=== PATIENT | female | born 1945 | race Caucasian/White ===

== ENCOUNTER 2019-04-01 18:52 | Emergency (ER) | payer MEDICARE, OTHER ==
[2019-04-01] MEDS ORDERED: Acetaminophen/HYDROcodone 325-5 MG Tab PO ONE (18:53)
[2019-04-01] MEDS ORDERED: Ondansetron 4 MG Tab.DIS PO ONE (18:53)
[2019-04-01] MEDS ORDERED: Acetaminophen/oxyCODONE 325-5 MG Tab PO ONE (18:53)
[2019-04-01] MEDS ORDERED: cefTRIAXone 1 GM Vial IM ONE (19:23)
--- NOTE | 2019-04-01 19:25 | EDM.PDOC ---
ED HPI GENERAL MEDICAL PROBLEM - General Chief Complaint: Genitourinary Problem Stated Complaint: lower back pain Time Seen by Provider: 04/01/19 19:07 Source of Information: Reports: Patient History Limitations: Reports: No Limitations - History of Present Illness INITIAL COMMENTS - FREE TEXT/NARRATIVE: This patient is a 73 year old female that presents to the ER. Patient reports that at 4:30pm she started with left lower back pain and urge to urinate with dysuria. Patient denies castelan, dizziness, n, v, d, f, cp, soa, abd pain, pelvic pain. Onset: Today Onset Date: 04/01/19 Onset Time: 16:30 Location: Reports: Back Quality: Reports: Burning Severity: Moderate Improves with: Reports: None Worsens with: Reports: None Associated Symptoms: Denies: Confusion, Chest Pain, Cough, cough w sputum, Diaphoresis, Fever/Chills, Headaches, Loss of Appetite, Malaise, Nausea/Vomiting , Rash, Seizure, Shortness of Breath, Syncope, Weakness Treatments [employer]: Reports: NSAIDS Lower Back Pain Score (Numeric/FACES): 6 - Related Data Allergies Allergy/AdvReac Type Severity Reaction Status Date / Time ciprofloxacin [From Cipro] Allergy Diarrhea Verified 04/01/19 18:55 ciprofloxacin HCl Allergy Diarrhea Verified 04/01/19 18:55 [From Cipro] lisinopril Allergy Cough Verified 04/01/19 18:55 Home Meds: Home Meds Calcium Carbonate [Calcium] 500 mg PO DAILY 04/01/19 [History] Flaxseed Oil 1,000 mg PO DAILY 04/01/19 [History] Glucosamine [Glucosamine Sulfate] 500 mg PO DAILY 04/01/19 [History] Losartan/Hydrochlorothiazide [Hyzaar 50-12.5 Tablet] 1 tab PO DAILY 04/01/19 [ History] Lutein/Min/Vit C/Vit E Acetate [Ocuvite Lutein] 1 cap PO DAILY 04/01/19 [History ] Rivaroxaban [Xarelto] 20 mg PO DAILY 04/01/19 [History] Ticagrelor [Brilinta] 60 mg PO BID 04/01/19 [History] Past Medical History HEENT History: Reports: Cataract Cardiovascular History: Reports: Aneurysm, Blood Clots/VTE/DVT, Hypertension Respiratory History: Reports: Sleep Apnea Gastrointestinal History: Reports: GERD Genitourinary History: Reports: Pyelonephritis, Renal Calculus Neurological History: Reports: CVA Endocrine/Metabolic History: Reports: Obesity/BMI 30+ Oncologic (Cancer) History: Reports: Other (See Below) Other Oncologic History: "cancerous skin spots removed from face" Dermatologic History: Reports: Other (See Below) Other Dermatologic History: spots of skin cancer removed on face - Past Surgical History HEENT Surgical History: Reports: Cataract Surgery, Oral Surgery Cardiovascular Surgical History: Reports: Aneurysm, Other (See Below) Other Cardiovascular Surgeries/Procedures: coils and clips placed in December 2018 Respiratory Surgical History: Reports: None GI Surgical History: Reports: None Female Surgical History: Reports: None Endocrine Surgical History: Reports: None Neurological Surgical History: Reports: None Oncologic Surgical History: Reports: None Dermatological Surgical History: Reports: None Social & Family History - Tobacco Use Smoking Status *Q: Never Smoker Second Hand Smoke Exposure: No - Caffeine Use Caffeine Use: Reports: None - Recreational Drug Use Recreational Drug Use: No ED ROS GENERAL - Review of Systems Review Of Systems: See Below Constitutional: Reports: No Symptoms, Chills. Denies: Fever, Malaise, Weakness , Fatigue HEENT: Reports: No Symptoms Respiratory: Reports: No Symptoms. Denies: Shortness of Breath Cardiovascular: Reports: No Symptoms. Denies: Chest Pain Endocrine: Reports: No Symptoms GI/Abdominal: Denies: Abdominal Pain, Nausea, Vomiting : Reports: Dysuria, Flank Pain, Urgency Musculoskeletal: Reports: No Symptoms Skin: Reports: No Symptoms Neurological: Reports: No Symptoms Psychiatric: Reports: No Symptoms Hematologic/Lymphatic: Reports: No Symptoms Immunologic: Reports: No Symptoms ED EXAM, GI/ABD - Physical Exam Exam: See Below Exam Limited By: No Limitations General Appearance: Alert, WD/WN, No Apparent Distress Eyes: Bilateral: Normal Appearance Ears: Normal External Exam, Normal Canal, Hearing Grossly Normal, Normal TMs Nose: Normal Inspection, Normal Mucosa, No Blood Throat/Mouth: Normal Inspection, Normal Lips, Normal Teeth, Normal Gums, Normal Oropharynx, Normal Voice, No Airway Compromise Head: Atraumatic, Normocephalic Neck: Normal Inspection, Supple, Non-Tender, Full Range of Motion Respiratory/Chest: No Respiratory Distress, Lungs Clear, Normal Breath Sounds, No Accessory Muscle Use, Chest Non-Tender Cardiovascular: Normal Peripheral Pulses, Regular Rate, Rhythm, No Edema, No Gallop, No JVD, No Murmur, No Rub GI/Abdominal Exam: Normal Bowel Sounds, Soft, Non-Tender, No Organomegaly, No Distention, No Abnormal Bruit, No Mass, Pelvis Stable. No: Distended, Guarding , Rigid, Rebound, Tender Back Exam: CVA Tenderness (L). No: CVA Tenderness (R), Decreased Range of Motion, Muscle Spasm, Paraspinal Tenderness, Vertebral Tenderness Extremities: Normal Inspection, Normal Range of Motion, Non-Tender, No Pedal Edema, Normal Capillary Refill Neurological: Alert, Oriented Psychiatric: Normal Affect, Normal Mood Skin Exam: Warm, Dry, Intact, Normal Color, No Rash Lymphatic: No Adenopathy Course - Vital Signs Last Recorded V/S: Last Vital Signs Temp 100.4 F 04/01/19 20:25 Pulse 89 04/01/19 20:10 Resp 16 04/01/19 20:10 BP 138/54 L 04/01/19 20:10 Pulse Ox 96 04/01/19 20:10 - Orders/Labs/Meds Orders: Active Orders 24 hr Category Date Time Status Abdomen Pelvis wo Cont [CT] Stat Exams 04/01/19 19:43 Taken CULTURE URINE [RM] Stat Lab 04/01/19 19:19 Received Labs: Laboratory Tests 04/01/19 04/01/19 04/01/19 Range/Units 18:30 18:31 19:10 WBC 8.1 (5.0-10.0) 10^3/uL RBC 4.39 (4.00-5.50) 10^6/uL Hgb 12.4 (12.0-16.0) g/dL Hct 38.2 (37.0-47.0) % MCV 87.0 (82.0-94.0) fL MCH 28.2 (27.0-32.0) pg MCHC 32.5 L (33.0-38.0) g/dL RDW Coeff of Lacey 13.0 (11.0-15.0) % Plt Count 183 (150-400) 10^3/uL Neut % (Auto) 87.9 H (35-85) % Lymph % (Auto) 9.4 L (10-55) % Harrison % (Auto) 1.0 (0-16) % Eos % (Auto) 1.5 (0-5) % Baso % (Auto) 0.2 (0-3) % Neut # (Auto) 7.12 H (1.80-7.00) 10^3/uL Lymph # (Auto) 0.76 L (1.00-4.80) 10^3/uL Harrison # (Auto) 0.08 (0.00-0.80) 10^3/uL Eos # (Auto) 0.12 (0.00-0.45) 10^3/uL Baso # (Auto) 0.02 10^3/uL Sodium 145 (136-145) mEq/L Potassium 3.8 (3.5-5.0) mEq/L Chloride 107 H (98-106) mEq/L Carbon Dioxide 30 (21-32) mmol/L BUN 24 H (7-18) mg/dL Creatinine 1.4 H (0.6-1.0) mg/dL Est Cr Clr Drug Dosing 30.44 mL/min Estimated GFR (MDRD) 37 L (>=60) mL/min Glucose 119 H (75-99) mg/dL Calcium 9.5 (8.4-10.1) mg/dL Total Bilirubin 0.4 (0.0-1.0) mg/dL AST 11 L (15-37) U/L ALT 17 (12-78) U/L Alkaline Phosphatase 79 (46-116) U/L Total Protein 7.3 (6.4-8.2) g/dL Albumin 3.4 (3.4-5.0) g/dL Urine Color [place] (YELLOW) Urine Appearance Cloudy (CLEAR) Urine pH 7.0 (4.5-8.0) Ur Specific [place] 1.020 (1.003-1.020) Urine Protein 100 H (NEGATIVE) mg/dL Urine Glucose (UA) 100 H (NEGATIVE) mg/dL Urine Ketones Negative (NEGATIVE) mg/dL Urine Occult Blood Large H (NEGATIVE) Urine Nitrite Positive H (NEGATIVE) Urine Bilirubin Small H (NEGATIVE) Urine Urobilinogen 1.0 (0.2-1.0) EU/dL Ur Leukocyte Esterase Large H (NEGATIVE) Meds: Medications Discontinued Medications Generic Name Dose Route Start Last Admin Trade Name Freq PRN Reason Stop Dose Admin Acetaminophen 1,000 mg 04/01/19 20:15 04/01/19 20:25 Tylenol Extra Strength PO 04/01/19 20:16 1,000 mg ONETIME ONE Administration Ceftriaxone Sodium 1 gm 04/01/19 19:23 04/01/19 19:54 Rocephin IM 04/01/19 19:24 Not Given ONETIME ONE Ceftriaxone Sodium 1 gm 04/01/19 19:32 04/01/19 20:04 Rocephin IVPUSH 04/01/19 19:33 1 gm ONETIME ONE Administration Sodium Chloride 1,000 mls @ 1,000 mls/hr 04/01/19 19:32 04/01/19 20:02 Normal Saline IV 04/01/19 20:31 1,000 mls/hr .BOLUS ONE Administration Morphine Sulfate 4 mg 04/01/19 19:32 04/01/19 19:50 Morphine IVPUSH 04/01/19 19:33 4 mg ONETIME ONE Administration Ondansetron HCl 4 mg 04/01/19 19:33 04/01/19 19:48 Zofran IVPUSH 04/01/19 19:34 4 mg NOW STA Administration Ondansetron HCl 2 packet 04/01/19 21:17 Take Home: Ondansetron Odt 4 Mg, 2 Tab Pack PO 04/01/19 21:18 ONETIME ONE Oxycodone/Acetaminophen 2 packet 04/01/19 21:17 Take Home: Acetaminophen/Oxycodon, 2 Tab Pack PO 04/01/19 21:18 ONETIME ONE Tamsulosin HCl 0.4 mg 04/01/19 21:06 04/01/19 21:20 Flomax PO 04/01/19 21:07 0.4 mg ONETIME ONE Administration - Radiology Interpretation Free Text/Narrative:: CT ABD/PELVIS WITHOUT: 6mm stone left distal ureter about 1cm from the bladder. Mild left hydronephrosis. CT Results Date: 04/01/19 CT Results Time: 21:12 - Re-Assessments/Exams Free Text/Narrative Re-Assessment/Exam: 04/01/19 21:24 Patient is resting quietly. Patient reports her pain has improved. I will discharge the patient home. Educated to return if pain increases, fever, vomiting, or any other concerns. She agrees with discharge and voices back when to return. with her in room and also understands. Departure - Departure Time of Disposition: 21:13 Disposition: Home, Self-Care 01 Condition: Fair Clinical Impression: UTI, Urinary tract infectious disease, Ureteral stone with hydronephrosis - Discharge Information *PRESCRIPTION DRUG MONITORING PROGRAM REVIEWED*: No *COPY OF PRESCRIPTION DRUG MONITORING REPORT IN PATIENT EVER: No Instructions: Antibiotic Medicine, Adult, Bowe-kg-Gfez, Kidney Stones, Easy-to- Read, Urinary Tract Infection, Adult, [id number], Hydronephrosis Referrals: Kermit Pagan MD [Primary Care Provider] - Forms: ED Department Discharge Additional Instructions: Followup with your primary care provider Followup with urologist Return to the ER for fever, vomiting, unbearable pain, or any other concerns Increase fluids Zofran 4mg 1 pill every 6 hours as needed for nausea #4 take home, #8 no refill Percocet 5mg 1 pill every 4 hours as needed for pain #4 take home, #12 no refill Flomax 0.4mg 1 pill once a day #7 no refill Bactrim DS 1 pill twice a day for 7 days #14 no refill - My Orders Last 24 Hours: My Active Orders 04/01/19 19:19 CULTURE URINE [RM] Stat 04/01/19 19:43 Abdomen Pelvis wo Cont [CT] Stat - Assessment/Plan Last 24 Hours: My Active Orders 04/01/19 19:19 CULTURE URINE [RM] Stat 04/01/19 19:43 Abdomen Pelvis wo Cont [CT] Stat Plan: PLEASE SEE RN NOTE FOR PFSH.
[2019-04-01] MEDS ORDERED: Sodium Chloride 0.9% 1,000 ML IV ONE (19:32)
[2019-04-01] MEDS ORDERED: cefTRIAXone 1 GM Vial IVPUSH ONE (19:32)
[2019-04-01] MEDS ORDERED: Morphine 4 MG/ML Syringe IVPUSH ONE (19:32)
[2019-04-01] MEDS ORDERED: Ondansetron 4 MG/2 ML SDV IVPUSH STA (19:33)
[2019-04-01] MEDS ORDERED: Acetaminophen 500 MG Tab PO ONE (20:15)
[2019-04-01] MEDS ORDERED: Tamsulosin 0.4 MG Cap.ER PO ONE (21:06)
[2019-04-01] MEDS ORDERED: Take Home: Acetaminophen/oxyCODONE 325-5 MG, 2 Tab Pack PO ONE (21:17)
[2019-04-01] MEDS ORDERED: Take Home: Ondansetron 4 MG Tab.DIS, 2 Tab Pack PO ONE (21:17)
== END 2019-04-01 21:30 | disposition home or self-care (01) ==
LOC: CC.ED 18:52
DX: N13.2 Hydronephrosis with renal and ureteral calculous obstruction (principal); N39.0 Urinary tract infection, site not specified; I10 Essential (primary) hypertension; K21.9 Gastro-esophageal reflux disease without esophagitis; Z88.1 Allergy status to other antibiotic agents; Z88.8 Allergy status to other drugs, medicaments and biological substances; Z79.899 Other long term (current) drug therapy
CPT/HCPCS: 36415; 74176; 80053; 81003; 85025; 87086; 87088; 87186; 96361; 96374; 96375; 99284; A9270; J0696; J2270; J2405; J7030

== ENCOUNTER 2019-09-13 15:50 | Inpatient (IN) | payer MEDICARE, OTHER ==
[2019-09-13 16:22] LABS: CHLORIDE,CL 104 mEq/L (98-106); SODIUM,NA 143 mEq/L (136-145)
[2019-09-13] MEDS ORDERED: Sodium Chloride 0.9% 500 ML IV ONE (16:30)
[2019-09-13] MEDS ORDERED: fentaNYL 100 MCG/2 ML SDV IVPUSH ONE (16:30)
[2019-09-13] MEDS ORDERED: Acetaminophen 325 MG Tab PO PRN (17:33)
[2019-09-13] MEDS ORDERED: Ketorolac 30 MG/ML SDV IVPUSH ONE (17:38)
[2019-09-13] MEDS ORDERED: Ketorolac 30 MG/ML SDV IV PRN (17:40)
[2019-09-13] MEDS ORDERED: fentaNYL 100 MCG/2 ML SDV IVPUSH PRN (17:40)
[2019-09-13] MEDS ORDERED: Ondansetron 4 MG/2 ML SDV IV PRN (17:40)
[2019-09-13] MEDS ORDERED: Sodium Chloride 0.9% 1,000 ML IV SCH (17:45)
[2019-09-13] MEDS ORDERED: Enoxaparin 30 MG/0.3 ML Syringe SUBCUT SCH (17:45)
[2019-09-13] MEDS ORDERED: cefTRIAXone 1 GM Vial IVPUSH SCH (17:45)
--- NOTE | 2019-09-13 19:48 | PCM.DCSUM1 ---
Discharge Summary - Hospital Course Brief History: Rufina is a 73 yo female who was seen in clinic today and admitted to the hospital for pyelonephritis. Further investigation did show an obstructing pyelonephritis. 1 gram of Rocephin was given IV. IV fentanyl and toradol has been given for discomfort. Consultation with Dr. Garsia, hospitalist, [facility] did kindly accept transfer. Patient being transferred via ALS to [facility] in [place]. Diagnosis: Stroke: No - Discharge Data Discharge Date: 09/13/19 Discharge Disposition: DC/Tfer to Acute Hospital 02 Condition: Undetermined - Referral to Home Health Primary Care Physician: Kermit Pagan MD - Discharge Diagnosis/Problem(s) (1) UTI, Urinary tract infectious disease SNOMED Code(s): 61606527 ICD Code: N39.0 - URINARY TRACT INFECTION, SITE NOT SPECIFIED Status: Acute Current Visit: No (2) Ureteral stone with hydronephrosis SNOMED Code(s): 251713324 ICD Code: N13.2 - HYDRONEPHROSIS WITH RENAL AND URETERAL CALCULOUS OBSTRUCTION Status: Acute Current Visit: No - Discharge Plan Home Medications: Home Meds Calcium Carbonate [Calcium] 500 mg PO DAILY 04/01/19 [History] Flaxseed Oil 1,000 mg PO DAILY 04/01/19 [History] Losartan/Hydrochlorothiazide [Hyzaar 50-12.5 Tablet] 1 tab PO BEDTIME 04/01/19 [ History] Lutein/Min/Vit C/Vit E Acetate [Ocuvite Lutein] 1 cap PO DAILY 04/01/19 [History ] Aspirin [Halfprin] 81 mg PO DAILY 09/13/19 [History] - Discharge Summary/Plan Comment DC Time >30 min.: Yes - General Info Date of Service: 09/13/19 Admission Dx/Problem (Free Text: Pyelonephritis Functional Status: Reports: Pain Controlled - Review of Systems General: Reports: Fever, Chills HEENT: Reports: No Symptoms Pulmonary: Reports: No Symptoms Cardiovascular: Reports: No Symptoms Gastrointestinal: Reports: Abdominal Pain, Constipation. Denies: Nausea, Vomiting Genitourinary: Reports: Flank Pain. Denies: Dysuria Musculoskeletal: Reports: Other (flank pain) Skin: Reports: No Symptoms Neurological: Reports: No Symptoms Psychiatric: Reports: No Symptoms - Patient Data Vitals - Most Recent: Last Vital Signs Temp 101.9 F H 09/13/19 19:24 Pulse 103 H 09/13/19 19:24 Resp 18 09/13/19 19:24 BP 152/65 H 09/13/19 19:26 Pulse Ox 95 09/13/19 19:24 Weight - Most Recent: 230 lb Lab Results - Last 24 hrs: Laboratory Results - last 24 hr 09/13/19 09/13/19 09/13/19 Range/Units 16:02 16:02 16:02 WBC 10.7 H (5.0-10.0) 10^3/uL RBC 4.98 (4.00-5.50) 10^6/uL Hgb 14.1 (12.0-16.0) g/dL Hct 42.8 (37.0-47.0) % MCV 85.9 (82.0-94.0) fL MCH 28.3 (27.0-32.0) pg MCHC 32.9 L (33.0-38.0) g/dL RDW Coeff of Lacey 13.4 (11.0-15.0) % Plt Count 188 (150-400) 10^3/uL Neut % (Auto) 83.7 (35-85) % Lymph % (Auto) 9.5 L (10-55) % [place] % (Auto) 5.5 (0-16) % Eos % (Auto) 1.2 (0-5) % Baso % (Auto) 0.1 (0-3) % Neut # (Auto) 8.98 H (1.80-7.00) 10^3/uL Lymph # (Auto) 1.02 (1.00-4.80) 10^3/uL [place] # (Auto) 0.59 (0.00-0.80) 10^3/uL Eos # (Auto) 0.13 (0.00-0.45) 10^3/uL Baso # (Auto) 0.01 10^3/uL Sodium 143 (136-145) mEq/L Potassium 3.9 (3.5-5.0) mEq/L Chloride 104 (98-106) mEq/L Carbon Dioxide 28 (21-32) mmol/L BUN 27 H (7-18) mg/dL Creatinine 1.7 H D (0.6-1.0) mg/dL Est Cr Clr Drug Dosing TNP Estimated GFR (MDRD) 29 L (>=60) mL/min Glucose 120 H (75-99) mg/dL Lactic Acid (0.4-2.0) mmol/L Calcium 9.4 (8.4-10.1) mg/dL Total Bilirubin 0.4 (0.0-1.0) mg/dL AST 11 L (15-37) U/L ALT 18 (12-78) U/L Alkaline Phosphatase 83 (46-116) U/L C-Reactive Protein 1.0 H (0.2-0.8) mg/dL Total Protein 8.0 (6.4-8.2) g/dL Albumin 3.7 (3.4-5.0) g/dL Urine Color Yellow (YELLOW) Urine Appearance Slightly cloudy (CLEAR) Urine pH 7.5 (4.5-8.0) Ur Specific [place] 1.010 (1.003-1.020) Urine Protein Trace H (NEGATIVE) mg/dL Urine Glucose (UA) Negative (NEGATIVE) mg/dL Urine Ketones Negative (NEGATIVE) mg/dL Urine Occult Blood Moderate H (NEGATIVE) Urine Nitrite Positive H (NEGATIVE) Urine Bilirubin Negative (NEGATIVE) Urine Urobilinogen 0.2 (0.2-1.0) EU/dL Ur Leukocyte Esterase Large H (NEGATIVE) Urine RBC 40-50 H (0-5) /HPF Urine WBC >100 H (0-5) /HPF Urine WBC Clumps Few H (NOT SEEN) /HPF Ur Squamous Epith Cells Few H (NOT SEEN) /HPF Urine Bacteria Moderate H (NOT SEEN) /HPF Urinalysis Comment 09/13/19 Range/Units 17:15 WBC (5.0-10.0) 10^3/uL RBC (4.00-5.50) 10^6/uL Hgb (12.0-16.0) g/dL Hct (37.0-47.0) % MCV (82.0-94.0) fL MCH (27.0-32.0) pg MCHC (33.0-38.0) g/dL RDW Coeff of Lacey (11.0-15.0) % Plt Count (150-400) 10^3/uL Neut % (Auto) (35-85) % Lymph % (Auto) (10-55) % Greenwood % (Auto) (0-16) % Eos % (Auto) (0-5) % Baso % (Auto) (0-3) % Neut # (Auto) (1.80-7.00) 10^3/uL Lymph # (Auto) (1.00-4.80) 10^3/uL Green[place] # (Auto) (0.00-0.80) 10^3/uL Eos # (Auto) (0.00-0.45) 10^3/uL Baso # (Auto) 10^3/uL Sodium (136-145) mEq/L Potassium (3.5-5.0) mEq/L Chloride (98-106) mEq/L Carbon Dioxide (21-32) mmol/L BUN (7-18) mg/dL Creatinine (0.6-1.0) mg/dL Est Cr Clr Drug Dosing Estimated GFR (MDRD) (>=60) mL/min Glucose (75-99) mg/dL Lactic Acid 1.7 (0.4-2.0) mmol/L Calcium (8.4-10.1) mg/dL Total Bilirubin (0.0-1.0) mg/dL AST (15-37) U/L ALT (12-78) U/L Alkaline Phosphatase (46-116) U/L C-Reactive Protein (0.2-0.8) mg/dL Total Protein (6.4-8.2) g/dL Albumin (3.4-5.0) g/dL Urine Color (YELLOW) Urine Appearance (CLEAR) Urine pH (4.5-8.0) Ur Specific [place] (1.003-1.020) Urine Protein (NEGATIVE) mg/dL Urine Glucose (UA) (NEGATIVE) mg/dL Urine Ketones (NEGATIVE) mg/dL Urine Occult Blood (NEGATIVE) Urine Nitrite (NEGATIVE) Urine Bilirubin (NEGATIVE) Urine Urobilinogen (0.2-1.0) EU/dL Ur Leukocyte Esterase (NEGATIVE) Urine RBC (0-5) /HPF Urine WBC (0-5) /HPF Urine WBC Clumps (NOT SEEN) /HPF Ur Squamous Epith Cells (NOT SEEN) /HPF Urine Bacteria (NOT SEEN) /HPF Urinalysis Comment Med Orders - Current: Current Medications Acetaminophen (Tylenol) 650 mg PO Q4H PRN PRN Reason: Fever Last Admin: 09/13/19 18:06 Dose: 650 mg Ceftriaxone Sodium (Rocephin) 1 gm IVPUSH Q24H [facility] Last Admin: 09/13/19 18:24 Dose: 1 gm Fentanyl (Sublimaze) 50 mcg IVPUSH Q2H PRN PRN Reason: Pain Hydrochlorothiazide (Hydrochlorothiazide) 12.5 mg PO BEDTIME [facility] Last Admin: 09/13/19 19:26 Dose: 12.5 mg Sodium Chloride (Normal Saline) 1,000 mls @ 125 mls/hr IV ASDIRECTED [facility] Last Admin: 09/13/19 18:28 Dose: 125 mls/hr Ketorolac Tromethamine (Toradol) 30 mg IV Q6H PRN PRN Reason: Pain (moderate 4-6) Losartan Potassium (Cozaar) 50 mg PO BEDTIME [facility] Last Admin: 09/13/19 19:26 Dose: 50 mg Ondansetron HCl (Zofran) 4 mg IV Q4H PRN PRN Reason: Nausea/Vomiting Discontinued Medications Enoxaparin Sodium (Lovenox) 30 mg SUBCUT Q24H [facility] Last Admin: 09/13/19 19:28 Dose: Not Given Fentanyl (Sublimaze) 50 mcg IVPUSH ONETIME ONE Stop: 09/13/19 16:31 Last Admin: 09/13/19 16:30 Dose: 50 mcg Sodium Chloride (Normal Saline) 500 mls @ 500 mls/hr IV ONETIME ONE Stop: 09/13/19 17:29 Last Admin: 09/13/19 16:28 Dose: 500 mls/hr Ketorolac Tromethamine (Toradol) 30 mg IVPUSH ONETIME ONE Stop: 09/13/19 17:39 Last Admin: 09/13/19 18:08 Dose: 30 mg Non-Formulary Medication (Losartan/Hydrochlorothiazide) 1 tab PO BEDTIME LEONARDA - Exam General: Reports: Alert, Oriented HEENT: Reports: Pupils Equal, Pupils Reactive, EOMI Neck: Reports: Supple Lungs: Reports: Clear to Auscultation, Normal Respiratory Effort Cardiovascular: Reports: Regular Rate, Regular Rhythm, No Murmurs GI/Abdominal Exam: Soft, No Mass, Pelvis Stable, Tender (mild right upper and low abdominal pain), Abnormal Bowel Sounds (hypoactive). No: Guarding, Rigid Back Exam: Reports: CVA Tenderness (R). Denies: CVA Tenderness (L) Extremities: Normal Inspection, No Pedal Edema Skin: Reports: Other (increased warmth) Neurological: Reports: No New Focal Deficit Psy/Mental Status: Reports: Alert, Normal Affect, Normal Mood
[2019-09-13] MEDS ORDERED: Losartan 100 MG Tab PO SCH (20:00)
[2019-09-13] MEDS ORDERED: Non-Formulary Medication 1 Each (Losartan/Hydrochlorothiazide 1 TAB) PO SCH (20:00)
[2019-09-13] MEDS ORDERED: Hydrochlorothiazide 12.5 MG Cap PO SCH (20:00)
== END 2019-09-13 19:55 | DRG 690 ==
LOC: CC.MS 15:50 → CC.FCMC 15:50 → UNDOADMIN 17:03 → CC.MS 17:03 → UNDODISIN 19:55
PROVIDERS: ADMIT Physician Assistant Medical; ATTEND Family Medicine
DX: N13.6 Pyonephrosis (principal); K21.9 Gastro-esophageal reflux disease without esophagitis; G47.33 Obstructive sleep apnea (adult) (pediatric); Z86.711 Personal history of pulmonary embolism; Z98.49 Cataract extraction status, unspecified eye; Z88.1 Allergy status to other antibiotic agents; Z88.8 Allergy status to other drugs, medicaments and biological substances
CPT/HCPCS: 36415; 74176; 80053; 81001; 83605; 85025; 86140; 87040; 87077; 87086; 87088; 87186; A9270-GY; J0696; J1885; J3010; J7030; J7040

== ENCOUNTER → 2021-03-08 | Day surgery (SDC) | payer MEDICARE, OTHER ==
[~2021-03-08] MED LIST: Ketamine 200 MG/20 ML MDV ONE; Lactated Ringers 1,000 ML IV SCH; Propofol 200 MG/20 ML SDV ONE
--- NOTE | 2021-03-08 12:49 | OR ---
DATE OF OPERATION: 03/08/2021 PREOPERATIVE DIAGNOSIS: SCREENING COLONOSCOPY. POSTOPERATIVE DIAGNOSIS: SCREENING COLONOSCOPY. SURGEON: Kermit Pagan MD PROCEDURE: FULL-LENGTH COLONOSCOPY WITH FORCEPS POLYP REMOVAL X2. ANESTHESIA: MAC. COMPLICATIONS: None. SPECIMEN: Two small sessile polyps, each less than 4 mm. FINDINGS: 1. Full-length colonoscopy. 2. Marginal bowel prep. 3. Sessile polyps x2, less than 0.5 cm. 4. Internal hemorrhoids. 5. Mild sigmoid diverticulosis. RECOMMENDATIONS: Followup colonoscopy on an as-needed basis. INDICATIONS: The patient is a 75-year-old, never had a prior colonoscopy. We recommended a screening procedure and she agreed. DESCRIPTION OF PROCEDURE: The patient was prepped and draped, placed in the left lateral decubitus position. A lubricated Olympus colonoscope was inserted and easily advanced to the cecum. Direct visualization of the ileocecal valve and appendiceal orifice was accomplished. The bowel prep was marginal. There was a lot of liquid stool throughout. We did actually plug our scope, had to run the wire brush down to unplug because there was a lot of particulate matter and a lot of stool we found. Certainly, smaller lesions could have been missed and the entire colon was not able to be evaluated. Upon withdrawal, the cecum and ascending colon appeared benign. Just past the hepatic flexure in the proximal transverse colon, the patient had a small flat sessile polyp, approximately 3 to 4 mm. It was removed in its entirety with 2 forceps biopsies. A second polyp was found in the proximal sigmoid colon, only about 2 to 3 mm, removed as well with a forceps. There were no other polyps, masses, ulceration, or bleeding sites now found. No vascular abnormalities or signs of colitis. The patient did have scattered diverticula in the sigmoid, mild in severity. The rectal vault appeared benign. Retroflexion confirmed some perianal hemorrhoid disease. No other lesions found. Air was suctioned and scope removed without complication. CRISTIANA/KOKI /[id number]
== END ==
LOC: CC.SDS 06:31
PROVIDERS: ATTEND Family Medicine
DX: D12.3 Benign neoplasm of transverse colon (principal); K64.8 Other hemorrhoids; K57.30 Diverticulosis of large intestine without perforation or abscess without bleeding; I10 Essential (primary) hypertension; G47.33 Obstructive sleep apnea (adult) (pediatric); Z88.8 Allergy status to other drugs, medicaments and biological substances; Z79.899 Other long term (current) drug therapy; Z79.82 Long term (current) use of aspirin; Z98.890 Other specified postprocedural states
CPT/HCPCS: 00812; 45380; 88305; 99100; J2704; J7120

== ENCOUNTER 2023-01-10 14:35 | Emergency (ER) | payer MEDICARE, OTHER ==
[2023-01-10] MEDS ORDERED: Sodium Chloride 0.9% 10 ML Syringe FLUSH PRN (14:46)
[2023-01-10] MEDS ORDERED: Acetaminophen 500 MG Tab PO STA (14:52)
[2023-01-10] MEDS ORDERED: Sodium Chloride 0.9% 500 ML IV SCH (15:00)
[2023-01-10] MEDS ORDERED: cefTRIAXone 1 GM Vial IVPUSH ONE (15:50)
[2023-01-10] MEDS ORDERED: Take Home: Cefuroxime 250 MG Tab, 2 Tab Pack PO ONE (16:47)
== END 2023-01-10 17:06 | disposition home or self-care (01) ==
LOC: CC.ED 14:35
DX: N30.01 Acute cystitis with hematuria (principal); R50.81 Fever presenting with conditions classified elsewhere; I10 Essential (primary) hypertension; E66.9 Obesity, unspecified; Z68.39 Body mass index [BMI] 39.0-39.9, adult; Z86.73 Personal history of transient ischemic attack (TIA), and cerebral infarction without residual deficits; Z88.1 Allergy status to other antibiotic agents; Z88.8 Allergy status to other drugs, medicaments and biological substances; Z79.82 Long term (current) use of aspirin; Z79.899 Other long term (current) drug therapy; Z20.822 Contact with and (suspected) exposure to COVID-19
CPT/HCPCS: 36415; 80053; 81001; 83605; 85025; 86140; 87040; 87086; 87088; 87186; 87804; 96374; 99284; 99284-25; A9270-GY; J0696; J7040; U0002